=== PATIENT | female | born 1995 | race Hispanic/Latino ===

== ENCOUNTER 2020-06-21 08:25 | Outpatient (CLI) | payer OTHER ==
[~2020-06-21] VITALS: Ht 154.9 cm; Wt 54.5 kg
[2020-06-21 08:30] VITALS: BP 127/58
[2020-06-21] MEDS ORDERED: IRON SUCROSE 300 MG in NS 250 ML OVER 90 MIN. IV ONE (08:30)
[2020-06-21] MEDS ORDERED: IRON65TA2 PO (08:57)
[2020-06-21] MEDS ORDERED: PREN1CHW PO (08:57)
[2020-06-21 09:30] VITALS: BP 94/46
[2020-06-21 10:30] VITALS: BP 94/49
[2020-06-21 12:40] VITALS: BP 101/52
[2020-06-21 13:10] VITALS: BP 109/52
== END 2020-06-21 13:10 | disposition home or self-care (01) ==
LOC: M INFU 08:25
PROVIDERS: ATTEND Registered Nurse Maternal Newborn
DX: O99.013 Anemia complicating pregnancy, third trimester (principal); Z3A.30 30 weeks gestation of pregnancy
CPT/HCPCS: 96365; 96366; J1756

== ENCOUNTER 2020-06-28 09:43 | Outpatient (CLI) | payer OTHER ==
[~2020-06-28] VITALS: Ht 154.9 cm; Wt 54.5 kg
[~2020-06-28 09:43] MED LIST: IRON65TA2 PO; PREN1CHW PO
[2020-06-28 09:45] VITALS: BP 127/62
[2020-06-28] MEDS ORDERED: IRON SUCROSE 300 MG in NS 250 ML OVER 90 MIN. IV ONE (10:00)
[2020-06-28 10:25] VITALS: BP 107/58
[2020-06-28 11:25] VITALS: BP 95/48
[2020-06-28 12:25] VITALS: BP 106/51
[2020-06-28 13:50] VITALS: BP 113/55
== END 2020-06-28 13:50 | disposition home or self-care (01) ==
LOC: M INFU 09:43
PROVIDERS: ATTEND Registered Nurse Maternal Newborn
DX: D50.9 Iron deficiency anemia, unspecified (principal)
CPT/HCPCS: 96365; 96366; J1756

== ENCOUNTER 2020-07-05 09:59 | Outpatient (CLI) | payer OTHER ==
[~2020-07-05] VITALS: Ht 154.9 cm; Wt 54.5 kg
[2020-07-05] MEDS ORDERED: IRON SUCROSE 300 MG in NS 250 ML OVER 90 MIN. IV ONE (10:00)
[2020-07-05 10:05] VITALS: BP 120/56
[2020-07-05 11:30] VITALS: BP 105/55
[2020-07-05 12:30] VITALS: BP 109/65
[2020-07-05 14:00] VITALS: BP 111/56
== END 2020-07-05 14:05 | disposition home or self-care (01) ==
LOC: M INFU 09:59 → EDUNIT# 10:00 → M INFU 14:05
PROVIDERS: ATTEND Registered Nurse Maternal Newborn
DX: D50.9 Iron deficiency anemia, unspecified (principal)
CPT/HCPCS: 96365; 96366; J1756

== ENCOUNTER 2020-08-20 02:30 | Inpatient (IN) | payer OTHER ==
[2020-08-20] VITALS (35 sets, daily range): BP systolic 90–151; BP diastolic 46–93
[~2020-08-20] VITALS: Ht 152.4 cm; Wt 61.0 kg
[2020-08-20] MEDS ORDERED: VITA100T59 PO (04:02)
--- NOTE | 2020-08-20 04:07 | HPEPDOC ---
Obstetrical History & Physical General Date of Admission History of Present Illness Pt presents to triage with c/o contractions, denies bleeding, LOF, states reassuring movement Chief Complaint: Contractions, term Information Provided By: Patient Age: 24 : 1 Term: 0 Pre-term: 0 Abortions: 0 Livin Care Care: Good Care Dating Final EDC: Aug 26, 2020 Final EDC for Daily Update: Aug 26, 2020 Final EDC by: LMP LMP: Nov 20, 2019 1st Trimester Date: Jan 19, 2020 Weeks + Days: 8 (+3) Estimated Date of Confinement: Aug 26, 2020 EGA at Admission: 39 (+1) Antepartum Course Diagnos(e)s GBS positive urine, gestational anemia, Asthma history Height (inches): 62 Pre- weight (lbs.): 112 Admission Weight (lbs.): 132 Change in Weight (lbs.): 20 Past Medical History Past Obstetrical History : Past Obstetrical History: Primgravida Past Medical History Medical History Asthma Surgical History: Denies/None Family History Significant Family History: Diabetes (mgm), Hypertension (mother, mgm, pgm) Social History Marital Status: Family situation: Spouse/partner home Psychosocial History: No pertinent psych hx * Smoker: non-smoker Alcohol: Denies Drugs: denies Abuse Violence Screening Have you been hit/kicked/slapp: No Have you been sexually assault: No Imunizations Tdap status: current Allergies Coded Allergies: No Known Allergies (Unverified , 06/21/20) Medications Scheduled Ascorbic Acid (Vitamin C) Unknown Strength Tablet, Unknown Dose PO DAILY Ferrous Sulfate (Iron) 325 Mg Tablet, 1 TAB PO BID Comb No.42/Folic Acid (Prena1 Chew Tablet) 1.4 Mg Tab.ch.bph, 1 TAB PO DAILY Physical Examination Physical Examination GENERAL: Alert and oriented times three. BREAST: . ABDOMEN: Gravid and non-tender to touch. FETUS: Is vertex (VTX) by sterile vaginal examination (SVE), fetus is vertex (VTX) by Pablo. HEART RATE: Regular rate and rhythm. LUNGS: Clear to auscultation (CTA). EXTREMITIES: No edema. No clonus. Laboratory Data Urine Culture: Other (GBS) Pertinent Laboratoy Data Blood Type: A+ RBC Antibody Screen: Negative HIV: Negative Hepatitis B: Negative Rapid Plasma Reagin: Nonreactive Rubella: Immune Varicella: Immune Chlamydia/Gonorrhea: Negative Group B Streptococcus: Positive (by urine) Quad Screen Test: Negative Cystic Fibrosis: Negative Glucose Tolerance Test: 79 Anatomy Ultrasound Ultrasound Date: Apr 12, 2020 Placenta Location: Anterior Normal Anatomy: Yes Placenta Previa: No Estimated Weight (grams): 371 Steroid Therapy Steroid Therapy: No Vaginal Examination Dilation: 4 cm Effacement: 80% Station: -3 Cervical Consistency: Soft Cervical Position: Posterior Presentation: Cephalic presentation Assessment Heart Rate (FHR): 140 Variability: Moderate Accelerations: Positive (10x10) Decelerations: None Tocometer Contractions: Yes Frequency: regular (q2-3 min) Duration: greater than 60 seconds Strength: palpated as moderate, resting tone palp/soft Multi-drug resistant Organism: No history of MDRO Assessment/Plan Assessment Marti is a 24-year-old (G)1 para (P)0 at 39+1 weeks by 8+3-week ultrasound. Presents to Labor and Delivery (L&D) in labor at term. Plan Admit and orient. Confidential Investigator and consent. Diet: clear liquid. Group B Streptococcus (GBS) positive urine. Labs and intravenous (IV) per unit protocol. Counseled on Pitocin and augmentation of labor (IOL). Continuous efm x2 Lactated Ringers (LR): Bolus 1000 mL, then at 125 mL/hr. Anticipate [normal spontaneous delivery ()]. Monitor for change in or maternal status May have epidural as desired C-S as appropriate. Labor and Delivery Counseling Pt counseling reviewed on admission WAYLON CAMARENA CNM Aug 20, 2020 04:07
[2020-08-20] MEDS ORDERED: LR 1,000 ML IV SCH ×3 (04:12→16:45)
[2020-08-20] MEDS ORDERED: PENICILLIN G POTASSIUM IV 5 MU in D5W MINI-BAG PLUS 100 ML IV STA (04:12)
[2020-08-20] MEDS ORDERED: LACTATED RINGER'S 1000 ML IV STA (04:12)
[2020-08-20 04:44] LABS: HEMATOCRIT 39.5 % (36.0-47.0); HEMOGLOBIN 12.7 g/dl (12.0-15.5); MEAN CORPUSCULAR HEMOGLOBIN 28.5 pg (27.0-33.0); MEAN CORPUSCULAR HGB CONC 32.2 g/dl (32.0-36.5); MEAN CORPUSCULAR VOLUME 88.6 fl (80.0-96.0); PLATELET COUNT, AUTOMATED 124 10^3/uL (150-450); RED BLOOD COUNT 4.46 10^6/uL (4.00-5.40); WHITE BLOOD COUNT 12.8 10^3/uL (4.0-10.0)
[2020-08-20] MEDS ORDERED: FENTANYL 2MCG/ML ROPIVACAINE 0.2% IN 0.9% NACL 100ML IVBAG As Ordered ONE (04:46)
[2020-08-20] MEDS ORDERED: ONDANSETRON 4MG/2ML VIAL IV PRN ×2 (05:26→11:45)
[2020-08-20] MEDS ORDERED: ePHEDrine SULFATE 25 MG/5 ML(5MG/ML) SYRINGE IV PRN (05:26)
[2020-08-20] MEDS ORDERED: EPIDURAL/PCA KEYS XX PRN (05:26)
[2020-08-20] MEDS ORDERED: NALOXONE INJ 0.4MG/1ML VIAL (J2310 PER 1MG) IV PRN (05:26)
[2020-08-20] MEDS ORDERED: EPIDURAL COMMENT XX SCH (05:26)
[2020-08-20] MEDS ORDERED: FENTANYL/ROPIVACAINE/NACL BAG 100 ML EPIDURAL SCH (05:26)
[2020-08-20] MEDS ORDERED: LACTATED RINGER'S 1000 ML IV PRN (05:26)
[2020-08-20] MEDS ORDERED: diphenhydrAMINE 50MG/ML VIAL (J1200) IV PRN (05:26)
[2020-08-20] MEDS ORDERED: REFRIGERATOR IV KEYS XX PRN (05:26)
--- NOTE | 2020-08-20 06:44 | IPNPDOC ---
Obstetrical Progress Note Date of Service Aug 20, 2020 Subjective Pt states improved comfort after epidural anesthesia Objective Vital Signs Date Time Temp Pulse Resp B/P (MAP) Pulse Ox O2 Delivery O2 Flow Rate FiO2 08/20/20 05:43 102 131/62 (85) Assessment Heart Rate (FHR): 140 Variability: Minimal Accelerations: Positive (10x10) Decelerations: Prolonged (decel to the 60s while positioning for burroughs catheter after epidural placement. IVF bolus initiated, pt repositioned left and right lateral, then assisted to rotate to hands and knees with recovery in heart rate to baseline.) Heart Rate Tracing: Category II Tocometer Contractions: Yes Frequency: every 1-3 min. Duration: greater than 60 seconds Strength: palpated as moderate Sterile Vaginal Examination Dilation: 5 cm Effacement (%): 90% Cervical Consistency: Soft Cervical Position: Middle Postion/Presentation: Cephalic presentation Assessment and Plan Age: 24 : 1 Term: 0 Pre-term: 0 Abortions: 0 Livin EGA at Admission: 39 (+1) Group B Streptococcus: Positive Anticipate: Vaginal Delivery Additional Comments 24yo alex [id number] @39+1, A+, GBS+, gestational anemia, gestational thrombocytopenia, hx of asthma, labor at term 1000ml LR bolus followed by 125ml/hr, continue GBS prophylaxis per protocol, continuous efm x2, monitor for change in or maternal status, reposition frequently, evaluate for change as indicated, anticipate vaginal delivery WAYLON CAMARENA CNM Aug 20, 2020 06:44
[2020-08-20] MEDS: FERROUS SULFATE 325MG TAB PO SCH (09:00)
[2020-08-20] MEDS ORDERED: PENICILLIN G POTASSIUM IV 2.5 MU in IV 1 EA IV SCH (09:00)
--- NOTE | 2020-08-20 09:00 | IPNPDOC ---
Obstetrical Progress Note Date of Service Aug 20, 2020 Subjective Pt states feeling pain and pressure with contractions Objective Vital Signs Date Time Temp Pulse Resp B/P (MAP) Pulse Ox O2 Delivery O2 Flow Rate FiO2 08/20/20 07:46 98.4 106 16 97/53 (68) Assessment Heart Rate (FHR): 150 (fhr deceleration to 60s, pt assisted to rotate in both lateral positions and then recovered in hands and knees) Variability: Minimal to moderate Accelerations: None Decelerations: Prolonged Heart Rate Tracing: Category II Tocometer Contractions: Yes Frequency: every 1-3 min. Duration: greater than 60 seconds Strength: palpated as strong Sterile Vaginal Examination Dilation: 7 cm Effacement (%): 90% Station: -1 Cervical Consistency: Soft Cervical Position: Middle Postion/Presentation: Cephalic presentation Assessment and Plan Age: 24 : 1 Term: 0 Pre-term: 0 Abortions: 0 Livin Status: Reassuring (Fhr improved with interventions) Group B Streptococcus: Positive Anticipate: Vaginal Delivery Additional Comments ROM clear with cervical exam and FSE placed. Pt position rotated to hands and knees and propped on CUB for support and recovery with improvement in fhr and variability. LR bolus then return to 125ml/hr, continuous monitor with FSE and TOCO, continue GBS prophylaxis per protocol, anesthesia notified of patient current status, monitor for change in or maternal status, evaluate for change as indicated, anticipate vaginal delivery WAYLON CAMARENA CNM Aug 20, 2020 09:00
[2020-08-20] MEDS ORDERED: AZITHROMYCIN INJ 500 MG, VIAL MATE ADAPTER 1 EACH in D5W 250 ML IV ONE (09:15)
[2020-08-20] MEDS ORDERED: ceFAZolin SOD 2 GM in IV 1 EA IV ONE (09:15)
[2020-08-20] MEDS ORDERED: BICITRA 30ML SOLN UDC PO ONE (09:15)
[2020-08-20] MEDS ORDERED: dexameTHASONE 4 MG/ML 1ML VIAL (J1100 PER 1MG) As Ordered ONE (09:26)
[2020-08-20] MEDS ORDERED: OXYTOCIN INJ 10 UNITS/ML VIAL (J2590) As Ordered ONE (09:26)
[2020-08-20] MEDS ORDERED: ONDANSETRON 4MG/2ML VIAL As Ordered ONE (09:26)
[2020-08-20] MEDS ORDERED: LIDOCAINE PRES-FREE 2% 10ML AMP As Ordered ONE (09:32)
--- NOTE | 2020-08-20 09:49 | IPNPDOC ---
Obstetrical Progress Note Date of Service Aug 20, 2020 Subjective To room for assessment and introduction to patient FHT: 160, Minimal variability, intermittent late decels--cat II SVE: .-1 [place]: 4-02/12 no pitocin A/P 24 yo @ 39 Weeks in active labor. patient has made cervical changes but her station has remained at -1. cat II tracing with minimal variability. at this point i am concerned about acidosis due to minimal and occasional absent variability. discussed with patient my concerns at this time and the fact that she is a first time mom, expected to push for at least over an hours once complete. I feel at this time an expidited delivery with a C/s is waranted. patient and spouse expressed understanding and they want to proceed with C/D. Patient was consented for C/D Will order ANcef 2g, azitromycin 500mg, and vaginal prep supervisor dehydrogenation to the OR Objective Vital Signs Date Time Temp Pulse Resp B/P (MAP) Pulse Ox O2 Delivery O2 Flow Rate FiO2 08/20/20 07:46 98.4 106 16 97/53 (68) VINNY MCCALLUM MD Aug 20, 2020 09:49
[2020-08-20] MEDS ORDERED: METOCLOPRAMIDE INJ 10MG/2ML VIAL (J2765 PER 1) As Ordered ONE (10:28)
[2020-08-20] MEDS ORDERED: OXYTOCIN DRIP 30 UNITS in IV 1 EA IV SCH ×2 (10:32→11:30)
[2020-08-20] MEDS ORDERED: MOM 30ML SUSPENSION UDC PO PRN (10:45)
[2020-08-20] MEDS ORDERED: ANUSOL HC CREAM 30GM TOP PRN (10:45)
[2020-08-20] MEDS ORDERED: PROMETHAZINE 25 MG TAB PO PRN (10:45)
[2020-08-20] MEDS ORDERED: DIBUCAINE 1% OINTMENT 30GM TOP PRN (10:45)
[2020-08-20] MEDS ORDERED: DOCUSATE SODIUM 100 MG CAP PO PRN (10:45)
[2020-08-20 10:47] LABS: CORD GAS ABE V -5.9; CORD GAS HCO3 V 20.9 MEQ/L; CORD GAS O2 SAT V 79.9 %; CORD GAS PCO2 V 45.6 mmHg; CORD GAS PH V 7.279 UNITS; CORD GAS PO2 V 38.7 mmHg; CORD GAS SBC V 19.3 MEQ/L; CORD GAS TCO2 V 22.3 MEQ/L
[2020-08-20 10:49] LABS: CORD GAS ABE A -7.6; CORD GAS HCO3 A 22.5 MEQ/L; CORD GAS PCO2 A 67.2 mmHg; CORD GAS PH A 7.143 UNITS; CORD GAS TCO2 A 24.6 MEQ/L
--- NOTE | 2020-08-20 11:04 | DNPDOC ---
[facility] Delivery Note Delivery Note DATE OF DELIVERY: 08/20/2020 PREDELIVERY DIAGNOSIS: 39-3/7 weeks' gestation and labor, cat II tracing. POST DELIVERY DIAGNOSIS: Delivered same as above PROCEDURE: Spontaneous vaginal delivery DOUBLE END CHUCKING MACHINE OPERATOR: Dr. Vinny Mccallum ANESTHESIA: Epidural ESTIMATED BLOOD LOSS: 300 mL. FINDINGS: pound ounce infant, Score 2,2,4,8, nuchal cord times x1. DELIVERY SUMMARY: After a short second stage, the patient spontaneously delivered a ---pound ---ounce ---- , weighing -----grams, under ---- anesthesia. The infant delivered REMIGIO, and there was nuchal cord time one, loose, which was delivered through. The shoulders delivered with ease, followed by the corpus and terminal meconium. The infant was limp and had no cry, so the cord was immediately cut and the handed to the NICU Team. scores were 2, 2, 4 and 8 Cord gases were obtained Arterial PH 7.143, BE -7.6, Venous PH 7.279, BE -5.9. The placenta was delivered spontaneously and appeared to be intact. The patient received 30 units Pitocin immediately after delivery of the placenta. Patient had had no lacerations. Sponge, needle, and instrument counts were correct VINNY MCCALLUM MD Aug 20, 2020 11:00
[2020-08-20] MEDS ORDERED: OXYTOCIN 30 UNITS IN 0.9% NaCl 500ML IV BAG (J2590) As Ordered ONE (11:34)
[2020-08-20] MEDS ORDERED: METOCLOPRAMIDE INJ 10MG/2ML VIAL (J2765 PER 1) IV PRN (11:45)
[2020-08-20] MEDS ORDERED: fentaNYL 100 MCG/2 ML INJECTION (J3010) IV PRN (11:45)
[2020-08-20] MEDS ORDERED: MEPERIDINE INJ 25 MG/ML VIAL (J2175) IV PRN (11:45)
[2020-08-20] MEDS ORDERED: PERCOCET 5MG/325MG TAB PO PRN (11:45)
[2020-08-20] MEDS ORDERED: miSOPROStol 200 MCG TAB (S0191) PR ONE (12:15)
[2020-08-21] MEDS: IBUPROFEN 800 MG TAB PO PRN ×2 (04:25→18:03)
[2020-08-21 06:00] VITALS: BP 108/64
--- NOTE | 2020-08-21 06:36 | IPNPDOC ---
Progress Note Date of Service: Aug 21, 2020 Day#: 1 Progress Note SUBJECT: Linda is a 24-year-old 1 now Para 1001 status post uncompl icated spontaneous vaginal delivery at 39-3/7 weeks' on 08/20/2020 of a female 6pounds 5 ounces ( 2862g) scores were 2, 2, 4 and 8 Cord gases were obtained Arterial PH 7.143, BE -7.6, Venous PH 7.279, BE -5.9. Patient is doing well day # 1 and the Baby is in NICU also doing well. She has been ambulating, voiding spontaneously without issue and tolerating regular diet. . hand expressing with some colostrum returm. Reports lochia is minimal . OBJECTIVE: VITAL SIGNS: Within normal limits, afebrile. Alert and oriented times three. Breath Normal work of breathing Heart rate: Regular rate and rhythm Abdomen: Fundus firm at U-2. Soft, NTTP. ASSESSMENT: Linda is a 24-year-old 1 now Para 1001 status post uncomplicated spontaneous vaginal delivery at 39-3/7 weeks' on 08/20/2020 of a female 6pounds 5 ounces ( 2862g) scores were 2, 2, 4 and 8 Cord gases were obtained Arterial PH 7.143, BE -7.6, Venous PH 7.279, BE -5.9. Patient is doing well day # 1 and the Baby is in NICU also doing well. Vitals within normal limits, afebrile, hemodynamically stable with no evidence of infection. PLAN: 1. Discharge to home tomorrow. 2. Tylenol and Motrin for pain. 3. Encourage breast feeding and ambulation. 4. Undecided for contraception- counseled on risks of close interval and available contraceptive options. she will decide at 6 weeks appointment. 5. Routine PP visit in 6 weeks in clinic. 6. Discussed return precautions at length. VS, I&O, 24H, Fishbone Vital Signs/I&O Vital Signs Date Time Temp Pulse Resp B/P (MAP) Pulse Ox O2 Delivery O2 Flow Rate FiO2 08/20/20 18:00 98.4 82 18 121/62 (81) I&O- Last 24 Hours up to 6 AM 08/21/20 06:00 Intake Total 985 ml Output Total 2650 ml Balance -1665 ml Laboratory Data 24H LABS Laboratory Tests 2 08/20/20 06:49: Serology Scanned Report Hepatitis B Testing 08/20/20 10:38: Cord Arterial Blood pH 7.143, Cord Arterial Blood PCO2 67.2, Cord Arterial Blood PO2 17.0, Cord Arterial Blood HCO3 22.5, Cord Arterial Blood Total CO2 24.6, Cord Arterial Blood Base Excess -7.6, Cord Arterial Base Excess (Standard 17.0, Cord Arterial Bld Oxygen Saturation 29.0, Cord Venous Blood pH 7.279, Cord Venous Blood PCO2 45.6, Cord Venous Blood PO2 38.7, Cord Venous Blood HCO3 20.9, Cord Venous Blood Total CO2 22.3, Cord Venous Base Excess (Actual) -5.9, Cord Venous Base Excess (Standard) 19.3, Cord Venous Blood Oxygen Saturation 79.9 VINNY MCCALLUM MD Aug 21, 2020 05:28
[2020-08-21] MEDS: ACETAMINOPHEN 500 MG TAB PO PRN (07:26)
[2020-08-21] MEDS: FERROUS SULFATE 325MG TAB PO SCH (07:26)
[2020-08-21 18:00] VITALS: BP 110/63
[2020-08-22] MEDS: ACETAMINOPHEN 500 MG TAB PO PRN (02:55)
[2020-08-22 05:34] VITALS: BP 115/59
--- NOTE | 2020-08-22 07:40 | IPNPDOC ---
Progress Note Date of Service: Aug 22, 2020 Day#: 2 Progress Note SUBJECT: 24yo s/p doing well day #2. Infant remains in NICU. She is pumping and working on latch with for . She has been ambulating, voiding spontaneously without issue and tolerating regular diet. Reports lochia is decreasing. Patient is ambulating well. OBJECTIVE: VITAL SIGNS: Within normal limits, afebrile. Alert and oriented times three. Abdomen: Fundus firm at U-2. Soft, NTTP Ext: no edema. ASSESSMENT: 24yo s/p doing well day #2. Vitals within normal limits, afebrile, hemodynamically stable with no evidence of infection. PLAN: 1. Discharge to home tomorrow as remains in NICU at this time to allow patient additional time for support 2. Tylenol and Motrin for pain. 3. Encourage breast feeding and ambulation. 4. Encourage regular diet as tolerated. VS, I&O, 24H, Fishbone Vital Signs/I&O Vital Signs Date Time Temp Pulse Resp B/P (MAP) Pulse Ox O2 Delivery O2 Flow Rate FiO2 08/22/20 05:34 98.3 68 17 115/59 (77) 100 Room Air AUDELIA ROLDAN DO Aug 22, 2020 07:40
[2020-08-22] MEDS ORDERED: INFLUENZA QUADRIVALENT PF VACCINE 0.5ML SYRINGE IM ONE (09:00)
[2020-08-22] MEDS: FERROUS SULFATE 325MG TAB PO SCH (09:37)
[2020-08-22] MEDS: IBUPROFEN 800 MG TAB PO PRN (09:38)
[2020-08-22] MEDS ORDERED: DOCU100C16 PO (12:36)
[2020-08-22] MEDS ORDERED: IBUP80TA PO (12:36)
[2020-08-22] MEDS ORDERED: DIBU10OI TOP (12:36)
[2020-08-22 13:30] VITALS: BP 92/50
== END 2020-08-22 13:40 | disposition home or self-care (01) | DRG 807 ==
LOC: M LDO 02:30 → M LDI 04:10 → M OBS 17:40
PROVIDERS: ADMIT Registered Nurse; ATTEND Registered Nurse
PROC: 10E0XZZ Delivery of Products of Conception, External Approach (ICD-10-PCS; principal; 2020-08-20)
DX: O99.02 Anemia complicating childbirth (principal); Z37.0 Single live birth; D64.9 Anemia, unspecified; O99.824 Streptococcus B carrier state complicating childbirth; Z3A.39 39 weeks gestation of pregnancy; O77.0 Labor and delivery complicated by meconium in amniotic fluid; O69.81X0 Labor and delivery complicated by cord around neck, without compression, not applicable or unspecified

== ENCOUNTER → 2020-11-09 | Outpatient (CLI) | payer OTHER ==
[~2020-11-09] MED LIST changes: +DIBU10OI TOP; +DOCU100C16 PO; +IBUP80TA PO; +VITA100T59 PO
== END ==
LOC: M LAB 11:32
PROVIDERS: ATTEND Registered Nurse Maternal Newborn
DX: Z98.890 Other specified postprocedural states (principal)

== ENCOUNTER → 2022-09-24 | Outpatient (CLI) | payer OTHER ==
[~2022-09-24] VITALS: Ht 152.4 cm; Wt 68.4 kg
[~2022-09-24] MED LIST changes: -DIBU10OI TOP; +DIBU28OI2 TOP
[2022-09-24 20:36] VITALS: BP 136/69
== END ==
LOC: M LDO 20:20
PROVIDERS: ATTEND Obstetrics & Gynecology
DX: O36.8130 Decreased fetal movements, third trimester, not applicable or unspecified (principal); Z3A.39 39 weeks gestation of pregnancy; O99.824 Streptococcus B carrier state complicating childbirth; O26.893 Other specified pregnancy related conditions, third trimester; R25.2 Cramp and spasm; O47.1 False labor at or after 37 completed weeks of gestation
CPT/HCPCS: 59025; G0378; G0463

== ENCOUNTER 2022-09-28 00:41 | Inpatient (IN) | payer OTHER ==
[~2022-09-28] VITALS: Ht 152.4 cm; Wt 68.1 kg
[2022-09-28 01:02] VITALS: BP 123/65
[2022-09-28] MEDS ORDERED: LACTATED RINGER'S 1000 ML IV STA (01:11)
[2022-09-28] MEDS ORDERED: OXYTOCIN INJ 10UNITS/ML 1ML VIAL IM PRN (01:15)
[2022-09-28] MEDS ORDERED: OXYTOCIN DRIP 30 UNITS in IV 1 EA IV PRN ×6 (01:15)
[2022-09-28] MEDS ORDERED: LR 1,000 ML IV SCH ×2 (01:15)
[2022-09-28] MEDS ORDERED: LIDOCAINE 1% MDV 20ML VIAL INFIL PRN (01:15)
[2022-09-28] MEDS ORDERED: METHYLERGONOVINE MALEATE 0.2 MG/ML VIAL (J2210) IM PRN (01:15)
[2022-09-28] MEDS ORDERED: CARBOPROST TROMETHAMINE 250 MCG/ML AMP IM PRN (01:15)
[2022-09-28] MEDS ORDERED: OXYTOCIN DRIP 30 UNITS in IV 1 EA IV SCH (01:15)
[2022-09-28] MEDS ORDERED: OXYTOCIN INJ 10UNITS/ML 1ML VIAL IV PRN (01:15)
[2022-09-28] MEDS ORDERED: TRANEXAMIC ACID INJection 1,000 MG in NS 100 ML IV PRN (01:15)
[2022-09-28] MEDS ORDERED: PENICILLIN G POTASSIUM 5 MU IV 5 MU in D5W MINI-BAG PLUS 100 ML IV STA (01:19)
[2022-09-28 01:21] LABS: HEMATOCRIT 35.6 % (36.0-47.0); HEMOGLOBIN 11.2 g/dl (12.0-15.5); MEAN CORPUSCULAR HEMOGLOBIN 26.4 pg (27.0-33.0); MEAN CORPUSCULAR HGB CONC 31.5 g/dl (32.0-36.5); PLATELET COUNT, AUTOMATED 150 10^3/uL (150-450); RED BLOOD COUNT 4.24 10^6/uL (4.00-5.40); WHITE BLOOD COUNT 9.3 10^3/uL (4.0-10.0)
[2022-09-28] MEDS ORDERED: EPIDURAL/PCA KEYS XX PRN (01:45)
[2022-09-28] MEDS ORDERED: diphenhydrAMINE 50MG/ML VIAL IV PRN (01:45)
[2022-09-28] MEDS ORDERED: NALOXONE INJ 0.4MG/1ML VIAL IV PRN (01:45)
[2022-09-28] MEDS ORDERED: ePHEDrine SULFATE 25 MG/5 ML(5MG/ML) SYRINGE IVP PRN (01:45)
[2022-09-28] MEDS ORDERED: FENTANYL/ROPIVACAINE/NACL BAG 100 ML EPIDURAL SCH (01:45)
[2022-09-28] MEDS ORDERED: ONDANSETRON 4MG 2ML VIAL IV PRN (01:45)
[2022-09-28] MEDS ORDERED: LR 500 ML IV PRN (01:45)
[2022-09-28] MEDS ORDERED: DIBUCAINE 1% OINTMENT 30GM TOP PRN (02:25)
[2022-09-28] MEDS ORDERED: METHYLERGONOVINE MALEATE 0.2 MG TAB PO PRN (02:25)
[2022-09-28] MEDS ORDERED: DOCUSATE SODIUM 100MG CAPSULE PO PRN (02:25)
[2022-09-28] MEDS: ACETAMINOPHEN 500 MG TAB PO PRN ×2 (04:24→12:38)
[2022-09-28] MEDS ORDERED: PEN G POT 3,000,000 UNIT/50 ML 3,000,000 UNIT in IV 1 EA IV SCH (05:20)
[2022-09-28] MEDS: PRENATAL VITAMINS CHEWABLE TABLET PO SCH (09:22)
[2022-09-28 18:00] VITALS: BP 125/59
[2022-09-28] MEDS: IBUPROFEN 800 MG TAB PO PRN (18:25)
[2022-09-29] MEDS: PRENATAL VITAMINS CHEWABLE TABLET PO SCH (10:05)
[2022-09-29] MEDS ORDERED: medroxyPROGESTERone ACET IM SUSP 150 MG/ML VIAL IM ONE (11:00)
[2022-09-29] MEDS: IBUPROFEN 800 MG TAB PO PRN (17:40)
[2022-09-30] MEDS ORDERED: MEASLES,MUMPS,RUBELLA VACCINE INJ (MMR-II) (90707) SC.IMMUN ONE (09:00)
== END 2022-09-29 18:30 | disposition home or self-care (01) | DRG 807 ==
LOC: M LDO 00:41 → M LDI 00:58 → M OBS 04:18
PROVIDERS: ADMIT Obstetrics & Gynecology; ATTEND Obstetrics & Gynecology
PROC: 10E0XZZ Delivery of Products of Conception, External Approach (ICD-10-PCS; principal; 2022-09-28)
PROC: 3E023GC Introduction of Other Therapeutic Substance into Muscle, Percutaneous Approach (ICD-10-PCS; 2022-09-29)
DX: O48.0 Post-term pregnancy (principal); Z37.0 Single live birth; Z3A.40 40 weeks gestation of pregnancy; O99.824 Streptococcus B carrier state complicating childbirth; O69.81X0 Labor and delivery complicated by cord around neck, without compression, not applicable or unspecified